=== PATIENT | female | born 1985 | race Caucasian/White ===

== ENCOUNTER 2024-02-19 04:15 | Inpatient (IN) | payer SELFPAY ==
[2024-02-19 05:59] LABS: #Basophils 0.06 10x3/uL (0.0-0.2); %Basophils 0.8 % (0.0-1.0); %Eosinophils 3.3 % (0.0-10.0); %Lymphocytes 36.4 % (21.0-51.0); %Monocytes 6.8 % (0.0-10.0); %Neutrophils 52.4 % (42.0-75.0); Hematocrit 41.9 % (36.0-47.0); Hemoglobin 14.3 g/dL (12.0-16.0); Mean Corpuscular HGB CONC 34.1 g/dL (32.0-36.0); Mean Corpuscular Hemoglobin 30.8 pg (27.0-31.0); Mean Corpuscular Volume 90.3 fL (78.0-98.0); Mean Platelet Volume 9.7 fL (7.4-10.4); Platelet Count 362 10x3/uL (130-400); RBC Distribution Width 12.6 % (11.5-14.5); Red Blood Cell (RBC) Count 4.64 mill/uL (4.20-5.40)
[2024-02-19 06:28] LABS: ALT (SGPT) 76 U/L (8-55); AST (SGOT) 49 U/L (5-34); Albumin 3.8 g/dL (3.5-5.0); Alkaline Phosphatase 257 U/L (40-110); Anion Gap 20 mmol/L (10-20); BUN (Urea Nitrogen) 5 mg/dL (7.0-18.7); Bilirubin, Total 0.6 mg/dL (0.2-1.2); Calc. Creatinine Clearance 0 mL/min (70-130); Calcium 9.6 mg/dL (7.8-10.44); Carbon Dioxide 24 mmol/L (22-29); Chloride 95 mmol/L (98-107); Estimated GFR 73; Glucose 627 mg/dL (70-105); Potassium 4.1 mmol/L (3.5-5.1); Protein, Total 7.8 g/dL (6.0-8.3); Sodium 135 mmol/L (136-145)
[2024-02-19] MEDS ORDERED: Dextrose 50% Abboject 50 ML SYRINGE SLOW IVP PRN (07:01)
[2024-02-19] MEDS ORDERED: Glucagon 1 MG/ML KIT IM PRN (07:01)
[2024-02-19] MEDS ORDERED: Dextrose 5% in Water 1,000 ML IV PRN (07:01)
[2024-02-19 07:05] LABS: BHCG - Serum Negative (NEGATIVE); Pregs Control Background? CLEAR/WHITE (CLR/WHITE); Pregs Control Bar Appear? YES (CONTROL BAR)
[2024-02-19 07:05] LABS: Actual Bicarbonate (HCO3v) 26.8 mEq/L (22-28); Analyzer IN Cardio ER; Base Excess 1.2 mEq/L (-2.0 to +3.0); Calcium, Ionized (venous) 1.15 mmol/L (1.16-1.32); Chloride (VBG) 94 mmol/L (98-106); Hematocrit-VBG 47 % (36.0-47.0); Hemoglobin (Hb) 15.9 g/dL (11.7-15.5); Sodium 138 mmol/L (133-146); pH (venous) 7.383 (7.32-7.43)
[2024-02-19] MEDS ORDERED: Insulin Regular, Human 100 UNIT/ML 10 ML VIAL ONE (07:08)
[2024-02-19 07:10] LABS: Phosphorus 3.7 mg/dL (2.3-4.7)
[2024-02-19 07:12] LABS: Magnesium 1.9 mg/dL (1.6-2.6)
[2024-02-19] MEDS ORDERED: Etomidate 40 MG (20 mL) VIAL ONE (07:18)
[2024-02-19] MEDS ORDERED: fentaNYL 50 mcg/mL 1 mL Vial ONE ×2 (07:19→17:11)
[2024-02-19] MEDS: Morphine 4 MG/ML VIAL SLOW IVP PRN (08:55)
[2024-02-19 09:00] VITALS: BMI 55.3
[2024-02-19] MEDS: Acetaminophen 325 MG TAB PO PRN (10:31)
[2024-02-19] MEDS: traMADol HCl 50 MG TAB PO PRN (10:32)
[2024-02-19] MEDS: Insulin Lispro 100 UNIT/ML 10 ML VIAL SC PRN (10:32)
[2024-02-19] MEDS ORDERED: CEFAZOLIN 2 GM in Sodium Chloride 0.9% 100 ML IVPB SCH (12:45)
[2024-02-19] MEDS ORDERED: Dexmedetomidine 200 MCG/2 ML VIAL ONE (13:31)
[2024-02-19] MEDS ORDERED: Bupivacaine PF 0.5% 30 ML VIAL ONE (13:31)
[2024-02-19] MEDS ORDERED: Midazolam HCl 2 mg/2 ml Vial ONE (13:41)
[2024-02-19] MEDS ORDERED: Fentanyl 250 MCG/5 ML VIAL ONE (13:42)
[2024-02-19] MEDS ORDERED: CEFAZOLIN 2 GM VIAL ONE (14:01)
[2024-02-19] MEDS ORDERED: PROPOFOL 20 ML ONE (14:04)
[2024-02-19] MEDS ORDERED: Famotidine/PF 20 mg/2ml Vial ONE (14:20)
[2024-02-19] MEDS ORDERED: Ondansetron PF 4 MG/2 ML Vial ONE (14:42)
[2024-02-19] MEDS ORDERED: Lidocaine 2% PF 5 ML VIAL ONE (14:42)
[2024-02-19] MEDS ORDERED: Metoclopramide HCl 10 MG (2 mL) VIAL ONE (15:30)
[2024-02-19] MEDS ORDERED: Bupivacaine 0.25% HCL 30 ML VIAL ONE (16:02)
[2024-02-19] MEDS ORDERED: Ketamine In 0.9 % NaCl 50 MG/5 ML SYRINGE ONE (16:06)
[2024-02-19] MEDS ORDERED: Esmolol 100 MG/10 ML VIAL ONE (16:32)
[2024-02-19] MEDS ORDERED: fentaNYL PF 100 MCG/2 ML SYRINGE ONE (16:47)
[2024-02-20] MEDS: HYDROcodone/Acetaminophen 5/325 mg Tablet PO SCH (07:37)
[2024-02-20] MEDS: Methocarbamol 500 MG TAB PO PRN (09:21)
[2024-02-20] MEDS: Enoxaparin 30 MG (0.3 mL) SYRINGE SC SCH (09:21)
[2024-02-20 10:09] LABS: #Basophils 0.08 10x3/uL (0.0-0.2); %Basophils 0.7 % (0.0-1.0); %Eosinophils 0.5 % (0.0-10.0); %Lymphocytes 14.4 % (21.0-51.0); %Monocytes 9.8 % (0.0-10.0); %Neutrophils 74.2 % (42.0-75.0); Hematocrit 38.3 % (36.0-47.0); Hemoglobin 12.8 g/dL (12.0-16.0); Mean Corpuscular HGB CONC 33.4 g/dL (32.0-36.0); Mean Corpuscular Hemoglobin 30.6 pg (27.0-31.0); Mean Corpuscular Volume 91.6 fL (78.0-98.0); Mean Platelet Volume 9.3 fL (7.4-10.4); Platelet Count 368 10x3/uL (130-400); Red Blood Cell (RBC) Count 4.18 mill/uL (4.20-5.40)
[2024-02-20 10:15] LABS: Anion Gap 14 mmol/L (10-20); BUN (Urea Nitrogen) 6 mg/dL (7.0-18.7); Calc. Creatinine Clearance 213 mL/min (70-130); Calcium 8.9 mg/dL (7.8-10.44); Carbon Dioxide 23 mmol/L (22-29); Chloride 100 mmol/L (98-107); Estimated GFR 104; Glucose 360 mg/dL (70-105); Sodium 133 mmol/L (136-145)
[2024-02-20] MEDS: Ketorolac Tromethamine 30 MG (1 mL) VIAL IVP SCH (11:01)
[2024-02-20] MEDS: Morphine 2 MG/ML VIAL SLOW IVP SCH (15:29)
[2024-02-20] MEDS: HYDROcodone/Acetaminophen 5/325 mg Tablet PO PRN (16:15)
[2024-02-21] MEDS: Ondansetron PF 4 MG/2 ML Vial IVP PRN (06:16)
[2024-02-21] MEDS ORDERED: HYDROcodone/Acetaminophen 7.5/325 mg Tablet PO PRN (08:35)
[2024-02-21] MEDS: HYDROcodone/Acetaminophen 7.5/325 mg Tablet PO PRN ×2 (10:00→18:17)
[2024-02-21] MEDS ORDERED: Propranolol HCl 20 MG TAB PO PRN (12:08)
[2024-02-21] MEDS: metFORMIN 500 MG TAB PO SCH (15:39)
[2024-02-21] MEDS: busPIRone HCl 10 MG TAB PO SCH (21:42)
[2024-02-21] MEDS: Gabapentin 400 MG CAP PO SCH (21:42)
[2024-02-21] MEDS: DULoxetine 60 MG CAP PO SCH (21:42)
[2024-02-21] MEDS: Lurasidone 20 MG TABLET PO SCH (22:46)
[2024-02-21] MEDS: Lurasidone 40 MG TAB PO SCH (23:23)
[2024-02-22] MEDS: HYDROcodone/Acetaminophen 7.5/325 mg Tablet PO PRN (05:46)
[2024-02-22] MEDS ORDERED: TESTOSTERONE UNDECANOATE PO SCH (09:00)
[2024-02-22] MEDS: Doxepin HCl 10 MG CAP PO SCH (09:32)
[2024-02-22 15:51] VITALS: BP 155/90; TEMP 97.7
[2024-02-22] MEDS ORDERED: Lurasidone 20 MG TABLET PO SCH (21:00)
== END 2024-02-22 18:45 | disposition home or self-care (01) | DRG 493 ==
LOC: ERS 04:15 → SURG B 07:06
PROVIDERS: ADMIT Specialist; ATTEND Specialist
PROC: 0QSK04Z Reposition Left Fibula with Internal Fixation Device, Open Approach (ICD-10-PCS; principal; 2024-02-19)
PROC: 0QSH04Z Reposition Left Tibia with Internal Fixation Device, Open Approach (ICD-10-PCS; 2024-02-19)
DX: S82.52XA Displaced fracture of medial malleolus of left tibia, initial encounter for closed fracture (principal); Z68.43 Body mass index [BMI] 50.0-59.9, adult; S82.62XA Displaced fracture of lateral malleolus of left fibula, initial encounter for closed fracture; I10 Essential (primary) hypertension; W01.0XXA Fall on same level from slipping, tripping and stumbling without subsequent striking against object, initial encounter; G47.30 Sleep apnea, unspecified; E03.9 Hypothyroidism, unspecified; E11.9 Type 2 diabetes mellitus without complications; M79.7 Fibromyalgia; E66.01 Morbid (severe) obesity due to excess calories; Z91.048 Other nonmedicinal substance allergy status; Z79.84 Long term (current) use of oral hypoglycemic drugs; Z88.8 Allergy status to other drugs, medicaments and biological substances; Y93.89 Activity, other specified; Y92.89 Other specified places as the place of occurrence of the external cause; Z79.899 Other long term (current) drug therapy
CPT/HCPCS: 27840; 36415; 36416; 80048; 80053; 82010; 82805; 83735; 84100; 84703; 85025; 96361; 96374; 96375; 96376; C1713; J0665; J1650; J1815; J1885; J2250; J2272; J2405; J2704; J2765; J3010; J3490